=== PATIENT | female | born 1970 | race Caucasian/White ===

== ENCOUNTER → 2016-07-27 | Outpatient (CLI) | payer OTHER ==
[~2016-07-27] MED LIST: ANT25HP PO; LORA-741 PO; SERT-234 PO
--- NOTE | 2016-07-28 06:45 | SPLIT NIGHT TECHNICIAN REPORT ---
[facility] Split Night Polysomnogram - Cmm Inspector Report Study date: 07/27/2016 Referring Physician: DR. PEPE Name: MARY MARQUEZ Cmm Inspector: BETTY Mitchell. Date of : 1970 Height: 46 years, Height 5' 4" Sex: Female Weight: 255 lbs Age: 46 Neck Circum: 16 INCHES BMI: Medications: 43.77 LOREZEPAM 0.5 MG, MECLIZINE HCL 25 MG, SERTRALINE HCL 100 MG Patient History PATIENT HAS HISTORY OF OBESITY, LOUD SNORING, DAYTIME SLEEPINESS AND WITNESSED APNEAS. SHE HAS GAINED SIGNIFICANT AMOUNT OF WEIGHT OVER THE PAST 10 YEARS. SHE IS HERE TODAY FOR AN EVALUATION OF OPAL. ESS = 11 RM 4 Parameters Monitored NPSG: E1-M2, E2-M1, Fp1-M2, Fp2-M1, F3-M2, F4-M2, F4-M1, C3-M2, C4-M2, C4-M1, O1-M2, O2-M2, O2-M1, T3-M2, T4-M1, P3-M2, P4-M1, CHIN1, CHIN2, HR, EKG, Legs, PFLOW, SNOR, FLOW, CFLOW, Tidal Volume, THOR, ABDO, SpO2, PLTH, CPRESS, ETCO2 Wave, ETCO2, pH SLEEP SUMMARY DATA DIAGNOSTIC TREATMENT Lights Out: 11:06:38 PM 2:36:08 AM Lights On: 2:30:38 AM 5:50:08 AM Total Recording Time (TRT): 204.5 min. 195.0 min. Total Sleep Time (TST): 123.0 min. 189.5 min. NREM Time: 123.0 min. 24.0 min. REM Time: 0.0 min. 165.5 min. Sleep Period Time (SPT): 140.0 min. 193.0 min. Sleep Efficiency (SE): 60 % 98 % Sleep Latency: 64.0 min. 1.0 min. Arousal Index: 33.7 3.5 PAP Treatment Levels: 4, 5, 7, 8, 9, 10, 11, 12 * Optimal Pressure(s) SLEEP STAGING DATA DIAGNOSTIC TREATMENT Duration (min) TST % Duration (min) TST % Stage Wake: 81.0 min. -- 4.5 min. -- WASO: 17.0 min. -- 3.5 min. -- NREM: 123.0 min. 100 % 24.0 min. 13 % Stage N1: 10.0 min. 8 % 5.0 min. 3 % Stage N2: 113.0 min. 92 % 19.0 min. 10 % Stage N3: 0.0 min. 0 % 0.0 min. 0 % REM: 0.0 min. 0 % 165.5 min. 87 % POSITIONAL DATA Event Count Index Event Count Index Supine: 40 84.7 21 12.5 Supine NREM: 40 84.7 8 47.3 Supine REM: N/A N/A 13 9 Non-Supine: 134 84.3 21 13.6 Non-Supine NREM: 134 84.3 10 43.3 Non-Supine REM: N/A N/A 11 8.1 AROUSAL SUMMARY DATA: Event Count Index Event Count Index Apnea Arousals: 5 5.4 3 0.9 Hypopnea Arousals: 40 19.5 2 0.6 Snore Arousals: 10 4.9 0 0.0 PLM Arousals: 2 1.0 0 0.0 Non-Specific Arousals: 11 5.4 4 1.3 Total Arousals: 69 33.7 11 3.5 MYOCLONUS (PLM) Event Count Index Event Count Index PLM: 22 10.7 4 1.3 PLM AROUSAL: 2 1.0 0 0.0 PLM W/O AROUSAL 22 10.7 4 1.3 PLM W/RESP EVENT 5 0.0 1 0.0 MYOCLONUS (PLM) Event Count Index Event Count Index LM: 2 42.0 20 6.3 LM AROUSAL: 2 1.0 1 0.3 LM W/O AROUSAL LM W/RESP EVENT LM NON SPECIFIC 60 29.3 22 7.0 HEART RATE DATA DIAGNOSTIC TREATMENT Sleep (bpm): 69 68 REM (bpm): N/A 89 NREM (bpm): 89 89 Tachycardia Count: 0 0 Tachycardia Duration: 0.00 0 Bradycardia Count: 0 0 Bradycardia Duration: 0.00 0 DIAGNOSTIC PORTION TREATMENT PORTION RESPIRATORY DATA Event Count Index Event Count Index AHI: -- 84.4 -- 13.0 RDI: -- 84.9 -- 13 Obstructive Apnea: 10 4.9 3 0.9 Central Apnea: 0 0.0 0 0.0 Mixed Apnea: 1 0.5 0 0.0 Hypopnea: 162 79.0 38 12.0 RERA: 1 0.5 1 0.3 Total Apneas: 11 5.4 3 0.9 RESPIRATORY DATA REM NREM SLEEP REM NREM SLEEP Supine Position: Obstructive Apneas: N/A 0 0 0 0 0 Central Apneas: N/A 0 0 0 0 0 Mixed Apneas: N/A 0 0 0 0 0 Hypopneas: N/A 40 40 13 8 21 RERA N/A 0 0 0 0 0 Total Supine Events: N/A 40 40 13 8 21 Supine AHI: N/A 84.7 84.7 9 47.3 12.5 Supine RDI: N/A 84.7 84.7 8.6 47.3 12.5 REM NREM SLEEP REM NREM SLEEP Non-Supine Position: Obstructive Apneas: N/A 10 10 0 3 3 Central Apneas: N/A 0 0 0 0 0 Mixed Apneas: N/A 1 1 0 0 0 Hypopneas: N/A 122 122 10 7 17 RERA N/A 1 1 1 0 1 Total Supine Events: N/A 134 134 11 10 21 Supine AHI: N/A 84.3 84.3 8.1 43.3 13.6 Supine RDI: N/A 84.9 84.9 8.9 43.3 14.3 OXYGEN DESTAURATION DATA: Event Count Index Event Count Index REM Desaturations: N/A N/A 23 8.3 NREM Desaturations: 186 90.7 17 42.5 SNORE DATA DIAGNOSTIC TREATMENT Snore Time: 12.6 2:37:08 AM Snore TST%: 6 1 Snore Arousal Count: 10 0 Snore Arousal Index: 4.9 0.0 Desaturation Event Summary: Minimum %SpO2 Event Count Mean/Min/Max Duration(sec.) Desaturation Index % Time In Bed > 90 181 19.5 / 5.8 / 74.5 115.5 23.9 86 - 90 127 18.9 / 5.8 / 61.0 28.0 69.2 81 - 85 2 17.8 / 15.5 / 20.0 4.8 6.4 76 - 80 0 N/A 0.0 0.6 71 - 75 0 N/A 0.0 0.0 66 - 70 0 N/A 0.0 0.0 61 - 65 0 N/A 0.0 0.0 56 - 60 0 N/A 0.0 0.0 51 - 55 0 N/A 0.0 0.0 < 50 0 N/A 0.0 0.0 OXYGEN SATURATION DATA DIAGNOSTIC TREATMENT SpO2 Mean Sleep: 89 % 89 % SpO2 Mean REM: N/A % 89 % SpO2 Mean NREM: 89 % 89 % SpO2 Minimum Sleep: 77 % 80 % SpO2 Minimum REM: N/A % 80 % SpO2 Minimum NREM: 77 % 81 % Time Below 90% (TST): 70.8 117.0 Time Below 88% (TST): 43.2 39.9 Total REM NREM Awake <50% 0.0 min. 0.0 min. 0.0 min. 0.0 min. 51 - 60% 0.0 min. 0.0 min. 0.0 min. 0.0 min. 61 - 70% 0.0 min. 0.0 min. 0.0 min. 0.0 min. 71 - 80% 2.2 min. 0.3 min. 1.7 min. 0.2 min. 81 - 90% 296.9 min. 132.2 min. 98.3 min. 66.4 min. 91 - 100% 94.1 min. 33.0 min. 46.9 min. 14.2 min. Average 89 89 89 89 Minimum SpO2 77 80 77 78 Desaturation Event Index 35.3 8.3 82.9 7.0 # Desat. Events below 89% 227 23 196 8 Time(%) with Saturation below 89% 41.1 16.4 17.0 7.7 Time(min.) with Saturation below 89% 161.4 64.6 66.7 30.2 Recording Cmm Inspector Comments: Mrs. Marquez slept in the right, left and supine positions. PVC's noted. Leg movements noted. No bruxism noted. Snoring was noted and scored as a 4 on a scale of 1 through 5. (0=no snoring, 5=snoring loud enough to be heard through a closed door or down the [address] way) At 2:30 am Mrs. Marquez has met specific Split-Night criteria during the diagnostic portion of this study. CPAP was initiated at +4 CMH2O and up-titrated to an optimal level of +12 CMH2O, which nearly eliminated all respiratory events and snoring. A ResKymab Airfit F10 full face size small mask was used during titration Mrs. Marquez awoke to use the restroom 1 time during the night. Mrs. Marquez stated I did not sleep as well as I do when I am in my own bed. The final report will be interpreted and signed by a sleep physician. The completed physician report will then be placed in the patient medical record. Therapy Event: Therapy (cm H20) 0 4 5 7 8 9 10 11 12 Total Time at Pressure (min.) 204.0 9.1 8.9 72.1 8.8 27.5 26.2 7.0 34.4 TST at Pressure (min.) 123.0 8.1 8.9 71.1 8.8 27.5 25.7 7.0 32.4 # Periods 1 1 1 1 1 1 1 1 1 Sleep Onset (min.) 64.0 1.0 0.0 0.0 0.0 0.0 0.0 0.0 0.0 REM Onset (min.) N/A N/A 1.4 0.0 3.9 0.0 0.0 0.0 0.0 Sleep Efficiency % 60 89 100 98 100 100 98 100 94 Wakefulness (%) 39.7 11.0 0.0 1.4 0.0 0.0 1.9 0.0 5.8 Wakefulness (min.) 81.0 1.0 0.0 1.0 0.0 0.0 0.5 0.0 2.0 NREM 1 (%) 4.9 22.0 0.0 2.8 0.0 0.0 3.8 0.0 0.0 NREM 1 (min.) 10.0 2.0 0.0 2.0 0.0 0.0 1.0 0.0 0.0 NREM 2 (%) 55.4 67.0 16.0 2.9 44.7 0.0 3.8 0.0 13.1 NREM 2 (min.) 113.0 6.1 1.4 2.1 3.9 0.0 1.0 0.0 4.5 NREM 3 (%) 0.0 0.0 0.0 0.0 0.0 0.0 0.0 0.0 0.0 NREM 3 (min.) 0.0 0.0 0.0 0.0 0.0 0.0 0.0 0.0 0.0 REM (%) 0.0 0.0 84.0 93.0 55.3 100.0 90.5 100.0 81.1 REM (min.) 0.0 0.0 7.5 67.0 4.8 27.5 23.7 7.0 27.9 # Arousals 69 3 2 3 0 0 1 0 2 Arousal Index 33.7 22.3 13.5 2.5 0.0 0.0 2.3 0.0 3.7 # Snore 488 7 19 6 6 4 1 0 9 Snore Index 238.0 52.0 128.4 5.1 41.1 8.7 2.3 0.0 16.6 AHI 84.4 59.4 67.6 5.9 20.5 4.4 14.0 25.8 3.7 AHI Supine 84.7 N/A N/A 87.0 20.5 4.4 14.0 25.8 4.2 AHI Non-Supine 84.3 59.4 67.6 1.8 N/A N/A N/A N/A 0.0 NREM AHI 84.4 59.4 84.5 73.5 46.0 N/A 0.0 N/A 0.0 REM AHI N/A N/A 64.4 1.8 0.0 4.4 15.2 25.8 4.3 RDI 84.9 59.4 67.6 6.7 20.5 4.4 14.0 25.8 3.7 # Obstructive 10 1 2 0 0 0 0 0 0 # Central Ap 0 0 0 0 0 0 0 0 0 # Mixed 1 0 0 0 0 0 0 0 0 # Hypopneas 162 7 8 7 3 2 6 3 2 RERAS 1 0 0 1 0 0 0 0 0 Total Respiratory Events 174 8 10 8 3 2 6 3 2 Time Below SpO2 89.00% (min.) 58.1 1.1 6.5 4.2 3.1 19.5 18.0 3.8 17.0 Mean NREM SpO2 (%) 89 91 89 90 89 N/A 88 N/A 88 Mean REM SpO2 (%) N/A N/A 87 90 89 88 88 88 88 Mean Sleep SpO2 (%) 89 91 87 90 89 88 88 88 88 Min NREM SpO2 (%) 77 82 82 81 83 N/A 86 N/A 86 Min REM SpO2 (%) N/A N/A 80 80 87 85 81 81 85 Position Supine (min.) 28.3 0.0 0.0 3.4 8.8 27.5 25.7 7.0 28.7 Position Non-supine (min.) 94.7 8.1 8.9 67.7 0.0 0.0 0.0 0.0 3.7 LM Index Sleep 52.7 14.9 0.0 0.0 6.8 6.5 9.3 17.2 22.2 LM Index NREM 52.7 14.9 0.0 0.0 0.0 N/A 0.0 N/A 0.0 LM Index REM N/A N/A 0.0 0.0 12.4 6.5 10.1 17.2 25.8 Mean Heart Rate (bpm) 69 71 73 68 65 70 69 69 67 Min Heart Rate (bpm) 57 63 53 50 56 45 46 48 52
--- NOTE | 2016-07-31 18:39 | POLYSOMNOGRAPH REPORT ---
CLINICAL DATA: A 46-year-old female with obesity, loud snoring, daytime sleepiness, and witnessed apnea. She has gained a lot of weight over the last 10 years. She was sent for a sleep study by myself and Dr. Bhardwaj. This was a split night study. SLEEP ARCHITECTURE: For the diagnostic portion of the study, sleep period was 140 minutes. Total sleep time was 123 minutes, all of which was non-REM sleep. Sleep latency was delayed at 64 minutes. Sleep efficiency was 60%. Arousal index was 33.7. Sleep consisted of stage N1 8% and stage N2 92%. For the treatment portion of the study, sleep period was 193 minutes. Total sleep time was 189.5 minutes divided between 24 minutes of non-REM sleep and 165.5 minutes of REM sleep. Sleep latency was 1 minute. Arousal index was 3.5. Sleep efficiency was 98%. Sleep consisted of stage N1 3%, N2 10% and REM 87%. This suggests REM rebound. AROUSAL DATA: Prior to treatment, 69 arousals were recorded for an index of 33.7 per hour. Following treatment, 11 arousals recorded for an index of 3.5 per hour. PLM DATA: Prior to treatment, 60 limb movements during sleep were noted for an index of 29.3 per hour. During treatment, 22 limb movements during sleep were noted for an index of 7 per hour. EKG: Heart rates ranged from 68-89 beats per minute. PVCs were noted. RESPIRATORY DATA: Very severe sleep apnea was documented prior to treatment. The AHI was 84.4. There were 10 obstructive and 1 mixed apneic episodes recorded. There were 162 hypopneic episodes. The mean AHI during treatment was 13. There were 3 obstructive apneic episodes and 38 hypopneic episodes recorded. OXIMETRY DATA: Severe nocturnal hypoxemia was seen prior to treatment. Oxygen gideon was 77% during non-REM sleep. The mean saturation after treatment was 89%. APPLE TURNER'S COMMENTS AND TREATMENT SUMMARY: The patient slept in the right, left, and supine positions. Snoring was severe, rated 4 on a scale of 1-5. At 2:30 a.m., the patient met split night criteria. A ResMed AirFit F10 full facemask size small was used and CPAP was started. The patient was titrated up to her final pressure setting of 12 cm of water pressure. At the final pressure setting, the patient slept for 32 minutes with an AHI of 3.7. IMPRESSION: Very severe sleep apnea/hypopnea with a diagnostic apnea-hypopnea index of 84.4, corrected with CPAP at 12 cm of water pressure ResMed AirFit F10 full facemask, size small. RECOMMENDATIONS: The patient should be started on the above noted treatment regimen and seen back in followup within 90 days to document efficacy and compliance. CLARISSAD
== END | disposition home or self-care (01) ==
LOC: C.NEUR 21:00
PROVIDERS: ATTEND Internal Medicine Pulmonary Disease
DX: F41.8 Other specified anxiety disorders (principal); G47.30 Sleep apnea, unspecified

== ENCOUNTER → 2016-08-02 | Outpatient (CLI) | payer OTHER ==
[2016-08-02 13:16] LABS: BASO % 0.3 %; BASO ABS # 0.03 K/uL (0-0.2); COMPLETE YES; EOS % 3.6 %; HEMATOCRIT 41.4 % (37-47); IG% 0.2 %; LYMPH % 24.9 %; LYMPH ABS # 2.24 K/uL (1.2-3.4); MEAN CELL VOLUME 85.4 fL (80-100); MEAN CORPUSCULAR HEMOGLOBIN 29.3 pg (25-34); MEAN CORPUSCULAR HGB CONC 34.3 g/dl (32-36); MEAN PLATELET VOLUME 10.1 fL (7.4-10.4); MONO % 9.9 %; NEUT % 61.1 %; PLATELET COUNT 434 K/uL (130-400); RED BLOOD COUNT 4.85 M/uL (4.2-5.4)
== END | disposition home or self-care (01) ==
LOC: C.LABSPEC 12:36
PROVIDERS: ATTEND Internal Medicine
DX: R10.10 Upper abdominal pain, unspecified (principal)

== ENCOUNTER → 2016-08-03 | Outpatient (CLI) | payer OTHER ==
--- NOTE | 2016-08-03 10:08 | DIAGNOSTIC IMAGING REPORT ---
ABDOMINAL ULTRASOUND, RIGHT UPPER QUADRANT HISTORY: Generalized abdominal pain.. COMPARISON: None. FINDINGS: Pancreas: Suboptimal evaluated due to the patient's body habitus but is likely unremarkable. Liver: The liver is echogenic consistent with fatty change. Gallbladder: No gallbladder wall thickening. No gallstones. CBD: 4 mm. Right kidney: Unable to be visualized. IMPRESSION: 1. Normal gallbladder. No gallstones. 2. Hepatic steatosis. 3. The right kidney was unable to be visualized due to the patient's body habitus and the hepatic steatosis. Electronically signed by: Miquel Recinos M.D. 08/03/2016 10:06 AM Dictated Date/Time: 08/03/2016 10:01 AM
== END | disposition home or self-care (01) ==
LOC: C.ULTR 09:28
PROVIDERS: ATTEND Internal Medicine
DX: R10.11 Right upper quadrant pain (principal); K76.0 Fatty (change of) liver, not elsewhere classified

== ENCOUNTER → 2016-08-04 | Outpatient (CLI) | payer OTHER ==
[~2016-08-04] VITALS: Ht 162.6 cm; Wt 119.5 kg
[2016-08-04 16:06] VITALS: BP 152/100; PULSE 83; Ht 162.6 cm; Wt 119.5 kg
== END | disposition home or self-care (01) ==
LOC: C.NEUR 15:04
PROVIDERS: ATTEND Internal Medicine Pulmonary Disease
DX: G47.33 Obstructive sleep apnea (adult) (pediatric) (principal); R53.83 Other fatigue; G47.19 Other hypersomnia

== ENCOUNTER → 2016-11-03 | Outpatient (CLI) | payer OTHER ==
[~2016-11-03] VITALS: Ht 162.6 cm; Wt 96.0 kg
[2016-11-03 13:58] VITALS: BP 124/85; PULSE 96; Ht 162.6 cm; Wt 96.0 kg
== END | disposition home or self-care (01) ==
LOC: C.NEUR 13:11
PROVIDERS: ATTEND Internal Medicine Pulmonary Disease
DX: G47.33 Obstructive sleep apnea (adult) (pediatric) (principal); E66.9 Obesity, unspecified

== ENCOUNTER → 2016-12-12 | Outpatient (CLI) | payer OTHER ==
[2016-12-12 16:19] LABS: BASO % 0.4 %; BASO ABS # 0.04 K/uL (0-0.2); COMPLETE YES; EOS % 1.9 %; HEMATOCRIT 40.2 % (37-47); IG% 0.2 %; LYMPH % 22.9 %; LYMPH ABS # 2.42 K/uL (1.2-3.4); MEAN CELL VOLUME 86.6 fL (80-100); MEAN CORPUSCULAR HEMOGLOBIN 29.1 pg (25-34); MEAN CORPUSCULAR HGB CONC 33.6 g/dl (32-36); MEAN PLATELET VOLUME 9.9 fL (7.4-10.4); MONO % 10.5 %; NEUT % 64.1 %; PLATELET COUNT 438 K/uL (130-400); RED BLOOD COUNT 4.64 M/uL (4.2-5.4); WHITE BLOOD COUNT 10.56 K/uL (4.8-10.8)
[2016-12-12 16:36] LABS: ALT/SGPT 23 U/L (12-78); AST/SGOT 18 U/L (15-37); BLOOD UREA NITROGEN 9 mg/dl (7-18); BUN/CREATININE RATIO 9.7 (10-20); CALCIUM 8.9 mg/dl (8.5-10.1); CARBON DIOXIDE 28 mmol/L (21-32); CHLORIDE 107 mmol/L (98-107); CREATININE 0.88 mg/dl (0.60-1.20); GLUCOSE 82 mg/dl (70-99); SODIUM 143 mmol/L (136-145)
[2016-12-12 16:42] LABS: URINE APPEARANCE CLEAR (CLEAR); URINE BILIRUBIN NEG (NEG); URINE COLOR YELLOW; URINE NITRITE NEG (NEG); URINE PH 5.5 (4.5-7.5); UROBILINOGEN NEG (NEG)
[2016-12-12 16:43] LABS: ALB/GLOB RATIO 1.1 (0.9-2); ALKALINE PHOSPHATASE 81 U/L (45-117)
[2016-12-12 16:45] LABS: MANUAL MICROSCOPIC REQUIRED? NO; REVIEW REQ? NO
[2016-12-13 06:24] LABS: ESTIMATED AVERAGE GLUCOSE 126 mg/dl; HA1C FLAG Normal (Normal)
== END | disposition home or self-care (01) ==
LOC: C.LABSPEC 15:13
PROVIDERS: ATTEND Internal Medicine
DX: R73.9 Hyperglycemia, unspecified (principal); R53.83 Other fatigue; R35.0 Frequency of micturition

== ENCOUNTER → 2017-03-07 | Outpatient (CLI) | payer OTHER ==
--- NOTE | 2017-03-07 14:55 | DIAGNOSTIC IMAGING REPORT ---
TWO VIEW CHEST CLINICAL HISTORY: Cough. FINDINGS: PA and lateral chest radiographs are obtained. No prior studies are available for comparison at the time of dictation. The examination is degraded by large body habitus. The cardiomediastinal silhouette is unremarkable. The lungs and pleural spaces are clear. There is no pneumothorax. The bony thorax appears intact. IMPRESSION: No active disease in the chest. Electronically signed by: Cosme Napier M.D. 03/07/2017 2:54 PM Dictated Date/Time: 03/07/2017 2:53 PM
== END | disposition home or self-care (01) ==
LOC: C.RAD 14:26
PROVIDERS: ATTEND Internal Medicine
DX: R05 Cough (principal)

== ENCOUNTER → 2017-06-18 | Outpatient (CLI) | payer OTHER ==
[2017-06-18 15:14] LABS: BASO % 0.3 %; BASO ABS # 0.03 K/uL (0-0.2); COMPLETE YES; EOS % 2.7 %; HEMATOCRIT 38.7 % (37-47); IG% 0.3 %; LYMPH % 23.3 %; LYMPH ABS # 2.52 K/uL (1.2-3.4); MEAN CELL VOLUME 85.6 fL (80-100); MEAN CORPUSCULAR HEMOGLOBIN 29.6 pg (25-34); MEAN CORPUSCULAR HGB CONC 34.6 g/dl (32-36); NEUT % 65.4 %; PLATELET COUNT 403 K/uL (130-400); RED BLOOD COUNT 4.52 M/uL (4.2-5.4); WHITE BLOOD COUNT 10.83 K/uL (4.8-10.8)
[2017-06-18 15:24] LABS: ALT/SGPT 25 U/L (12-78); BLOOD UREA NITROGEN 13 mg/dl (7-18); BUN/CREATININE RATIO 17.5 (10-20); CALCIUM 8.7 mg/dl (8.5-10.1); CARBON DIOXIDE 26 mmol/L (21-32); CHLORIDE 104 mmol/L (98-107); CREATININE 0.75 mg/dl (0.60-1.20); GLUCOSE 86 mg/dl (70-99); POTASSIUM 3.5 mmol/L (3.5-5.1); SODIUM 139 mmol/L (136-145)
[2017-06-18 15:34] LABS: ALB/GLOB RATIO 1.1 (0.9-2); ALKALINE PHOSPHATASE 82 U/L (45-117); AST/SGOT 17 U/L (15-37); PROLACTIN 11.1 ng/mL
[2017-06-19 07:41] LABS: ESTIMATED AVERAGE GLUCOSE 126 mg/dl; HA1C FLAG Normal (Normal)
== END | disposition home or self-care (01) ==
LOC: C.LABSPEC 14:53
PROVIDERS: ATTEND Internal Medicine
DX: R53.83 Other fatigue (principal); R73.9 Hyperglycemia, unspecified

== ENCOUNTER → 2017-08-08 | Outpatient (CLI) | payer OTHER ==
--- NOTE | 2017-08-09 11:47 | CODING QUERY NO DIAGNOSIS ---
TREATMENT RENDERED WITHOUT A DIAGNOSIS To promote full compliance with coding requirements relating to patient care, physician participation is requested in all cases of post doc fellowship uncertainty. Please assist us with providing a diagnosis/symptom for the test(s) below: A diagnosis/symptom was not documented on your Order. A valid diagnosis/symptom is required to bill all insurances. Please remember that we are unable to code a diagnosis of rule out, probable, possible, questionable, or suspected. Tests that require a diagnosis: DOS 08/08 * TSH, T4 DIAGNOSIS: Provider Signature: Date: Thank you Jocelyn Raymundo Health Information Management Once completed, please kindly fax back to [phone] For questions please call [phone]
== END | disposition home or self-care (01) ==
LOC: C.LABSPEC 15:23
PROVIDERS: ATTEND Internal Medicine
DX: E03.9 Hypothyroidism, unspecified (principal)

== ENCOUNTER → 2017-11-02 | Outpatient (CLI) | payer OTHER ==
[~2017-11-02] VITALS: Ht 162.6 cm; Wt 128.8 kg
[2017-11-02 14:12] VITALS: BP 136/80; PULSE 81; Ht 162.6 cm; Wt 128.8 kg
== END | disposition home or self-care (01) ==
LOC: C.NEUR 13:19
PROVIDERS: ATTEND Internal Medicine Pulmonary Disease
DX: G47.33 Obstructive sleep apnea (adult) (pediatric) (principal); I10 Essential (primary) hypertension